=== PATIENT | male | born 1985 | race African-American/Black ===

== ENCOUNTER 2019-01-17 12:27 | Emergency (ER) | payer SELFPAY ==
[~2019-01-17] VITALS: Ht 182.9 cm; Wt 74.8 kg
[2019-01-17 12:29] VITALS: BP 134/89
--- NOTE | 2019-01-17 13:31 | RAD ---
3 views lumbar spine dated 01/17/2019. No comparison available. Clinical data indication: Pain after injury. FINDINGS: 3 views lumbar spine show normal sagittal alignment. Vertebral body heights are maintained. Minimal endplate hypertrophic changes throughout. Mild arthrosis lower lumbar apophyseal joints. IMPRESSION: No acute radiographic abnormality. Electronically signed by: Gregorio Mendoza MD (01/17/2019 1:28 PM) [id number]
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
== END 2019-01-17 14:00 | disposition home or self-care (01) ==
LOC: ER 12:27
DX: S30.0XXA Contusion of lower back and pelvis, initial encounter (principal); F17.200 Nicotine dependence, unspecified, uncomplicated; W50.0XXA Accidental hit or strike by another person, initial encounter; Y93.83 Activity, rough housing and horseplay; Y92.89 Other specified places as the place of occurrence of the external cause; Y99.8 Other external cause status
CPT/HCPCS: 72100; 99284